=== PATIENT | female | born 1955 | race Caucasian/White ===

== ENCOUNTER 2025-02-11 19:22 | Emergency (ER) | payer MEDICARE, MEDICAID, SELFPAY ==
[2025-02-11 19:24] VITALS: BMI 33.6
[2025-02-11 19:44] VITALS: BP 151/88; PULSE 74; RESP 20; TEMP 36.5; O2SAT 95
--- NOTE | 2025-02-11 19:54 | XR_ITS ---
Examination: Hand, left 2 views Technique: AP lateral left hand 2 views Date and time: February 11, 20251999 hrs. Indications: Injury to the hand today, hand pain. Findings: No acute fracture No dislocation No foreign body Impression: No acute fracture
--- NOTE | 2025-02-11 21:03 | PD.EDWOUND ---
ED Wound/Laceration-RME/HPI General Chief Complaint: Hand/Wrist Problems Stated Complaint: SMASHED LEFT 3RD DIGIT FINGER, LAC Time Seen by Provider: 02/11/25 19:26 Arrival date/time: 02/11/25 19:22 This is a case of 69-year-old female with no medical history came into the emergency room due to laceration on the fourth finger left hand history of present illness started 1 hour prior to arrival in the emergency room when the patient was helping her friend to lift heavy object and accidentally fell on his left hand sustaining a laceration 3 cm on the fourth finger left hand no other injury noted patient tetanus shot is not up-to-date Limitations: no limitations Related Data Home Medications ?Medication ?Instructions ?Recorded ?Confirmed gabapentin 300 mg capsule 300 mg PO BID ##0 07/29/09 12/17/22 albuterol sulfate 90 mcg/actuation 2 puff inhalation Q6HR PRN 07/15/16 12/17/22 aerosol inhaler (Proventil HFA) WHEEZING #0 inhalations escitalopram oxalate 10 mg tablet 10 mg PO QDAY 09/17/22 12/17/22 fluticasone propionate 110 1 puff inhalation DAILY PRN 09/17/22 12/17/22 mcg/actuation HFA aerosol inhaler Shortness Of Breath Or Wheezing (Flovent HFA) fluticasone propionate 50 2 spray intranasal QDAY PRN 09/17/22 12/17/22 mcg/actuation nasal Allergic Symptoms spray,suspension omeprazole 40 mg capsule,delayed 40 mg PO BID 09/17/22 12/17/22 release pravastatin 10 mg tablet 10 mg PO QDAY 09/17/22 12/17/22 atenolol 25 mg tablet 25 mg PO BID 12/17/22 12/18/22 Previous Rx's ?Medication ?Instructions ?Recorded hydrocodone 5 mg-acetaminophen 325 1 tab PO BID PRN pain #10 tabs 15/24 mg tablet cephalexin 500 mg capsule 500 mg PO Q12H #20 caps 02/11/25 mupirocin 2 % topical ointment 1 applic topical BID #1 tube 02/11/25 Allergies Allergy/AdvReac Type Severity Reaction Status Date / Time No Known Allergies Allergy Verified 02/11/25 19:23 Review of Systems Review of Systems Systems Reviewed: All systems reviewed, normal except as documented Constitutional Constitutional: Reports system reviewed and no additional complaints, except as documented and Reports as per HPI Cardiovascular Cardiovascular: Reports system reviewed and no additional complaints, except as documented and Reports as per HPI Respiratory Respiratory: Reports system reviewed and no additional complaints, except as documented and Reports as per HPI Gastrointestinal Gastrointestinal: Reports system reviewed and no additional complaints, except as documented and Reports as per HPI Genitourinary Genitourinary: Reports system reviewed and no additional complaints, except as documented and Reports as per HPI Musculoskeletal Musculoskeletal: Reports system reviewed and no additional complaints, except as documented and Reports as per HPI Past Medical History Past Medical History NEUROLOGIC: Negative Neurological Disorders or Seizures CARDIAC: Positive Hypercholesterolemia, Aneurysm (AAA) and Hypertension; Negative Cardiac Disorders or Congestive Heart Failure RESPIRATORY: Positive Chronic Obstructive Pulmonary Disease (COPD), Asthma, Bronchitis, Pneumonia (many years ago) and Sleep Apnea (does not have cpap) GASTROINTESTINAL: Positive Gastrointestinal Disorders, Gall Bladder Disease (OPEN), Ann's Esophagus, Hemorrhoids, Gastroesophageal Reflux Disease and Obesity GENITOURINARY: Positive Genitourinary Disorders, Renal Disease and Kidney Stones REPRODUCTIVE: Positive Previous Pregnancies (X2) MUSCULOSKELETAL: Positive Musculoskeletal Disorders, Arthritis and Fractures (left 5th toe) ENT: Positive Cataracts (abby) ENDOCRINE: Positive Endocrine Disorders and Diabetes Mellitus Type 2 (Diet controlled); Negative Diabetes Mellitus Type 1 HEMATOLOGIC: Negative Blood Disorders PSYCHO/SOCIAL: Positive Depression and Anxiety OTHER HISTORY: Positive Hospitalization, Chicken Pox, Measles and Mumps; Negative Autoimmune Disease, Falls, Blood Transfusions, Anesthesia Reactions or Cancer Family History FAMILY HISTORY: Positive Family Respiratory Disorders (MOTHER,FATHER lung CA), Family Cardiac Disorders (Father-[place]), Family Cancer (MOTHER,FATHER (LUNGS)) and Family Surgery (SISTER); Negative Family Psychiatric Problems, Family Gastrointestinal Problems or Family Anesthesia Reaction Surgical History SURGICAL: Positive Abdominal Surgery, Tubal Ligation and Section (X2); Negative Cardiac Surgery or Joint Replacement Social History SMOKING STATUS: Never smoker ED Exam General Limitations: Present no limitations General appearance: Present alert, in no apparent distress and other (Patient is awake alert oriented not in distress nontoxic looking well-hydrated well-nourished) Head Head exam: Present atraumatic, normocephalic and normal inspection Eye Eye exam: Present normal appearance, PERRL and EOMI ENT ENT exam: Present normal exam, normal oropharynx and mucous membranes moist Neck Neck exam: Present normal inspection, full ROM and trachea midline Chest Chest inspection: Present normal inspection and symmetric chest wall rise Respiratory Respiratory exam: Present normal lung sounds bilaterally; Absent respiratory distress, wheezes, stridor, accessory muscle use or prolonged expiratory phase Cardiovascular Cardiovascular exam: Present regular rate, normal rhythm and normal heart sounds; Absent bradycardia, tachycardia, irregular rhythm, systolic murmur or diastolic murmur Abdominal Exam Abdominal exam: Present soft and normal bowel sounds Extremities Exam Extremities exam: Present normal inspection and full ROM Expanded Upper Extremity Exam Hand exam: Present normal inspection, full ROM and other (No snuffbox tenderness patient sustained a 3 cm linear laceration on the fourth finger left hand no foreign body no tendon or bone injury no cellulitis no abscess ROM is intact pulses are full and intact capillary refill less than 2 seconds sensory is intact nail is intact); Absent tenderness, swelling, abrasion, laceration, skin avulsion, ecchymosis, deformity, crepitus, dislocation, erythema, amputation, nail avulsion or subungual hematoma Back Exam Back exam: Present normal inspection and full ROM Neurological Exam Neurological exam: Present alert, oriented X3, CN II-XII intact, normal gait and reflexes normal; Absent motor sensory deficit Psychiatric Psychiatric exam: Present normal affect and normal mood Skin Skin exam: Present warm, dry, intact, normal color and other (No abscess no cellulitis) Course Quality Measures none Orders Category Date Time Status XR hand LT 2V Stat Exams 02/11/25 19:54 Taken TET,DIP/PERT AC (Adult)-Tdap [Boostrix Adult (Tdap) Med 02/11/25 19:54 Discontinued Vacc] 0.5 ml IMI .ONCE ONE Vital Signs Vital signs: Vital Signs Temperature 97.7 F 02/11/25 19:44 Pulse Rate 74 02/11/25 19:44 Respiratory Rate 20 02/11/25 19:44 Blood Pressure 151/88 H 02/11/25 19:44 Pulse Oximetry (%) 95 02/11/25 19:44 Oxygen Delivery Method Room Air 02/11/25 19:44 Oxygen saturation 98% in room air PROCEDURES: Laceration Laceration 1: Site: other (Fourth finger left hand) Side (If applicable): left Size (cm): 3 Description: linear Depth: simple, single layer Local Anesthetic: lidocaine 1% Amount of anesthesia used (mL): 4 Pre-repair: wound explored, irrigated extensively and deep structures intact Skin layer closed with: nylon Suture size (cm): 4-0 Number of sutures: 3 Technique: simple, interrupted Wound / Laceration MDM Narrative [facility] Narrative:: This is a case of 69-year-old female with no medical history came into the emergency room due to laceration on the fourth finger left hand history of present illness started 1 hour prior to arrival in the emergency room when the patient was helping her friend to lift heavy object and accidentally fell on his left hand sustaining a laceration 3 cm on the fourth finger left hand no other injury noted patient tetanus shot is not up-to-date physical examination patient is awake alert oriented not in distress nontoxic looking well-hydrated well-nourished nourished noted a 3 cm laceration linear on the fourth finger left hand no foreign body no tendon no bone injury no redness no cellulitis no abscess ROM is intact nail is intact pulses were full and equal capillary refill less than 2 seconds sensory intact the rest of the physical examination neurological exam is normal and unremarkable x-ray showed no fracture no dislocation noted by me laceration repair was performed patient tolerated well the procedure no complication noted bleeding controlled procedure done by [place] protocol and via sterile technique patient will follow-up with primary care physician in 2 days for reevaluation and 10 days for removal of suture for any signs and symptoms of infection patient will return to the emergency room immediately or call 911 patient was discharged with cephalexin and mupirocin to prevent infection and she will take Tylenol for pain Patient was discharged with comfortable condition walking with stable gait. Patient verbalized no further complains explained diagnosis and answered patient question. Patient is comfortable with the proposed management plan including the need to follow up with his/her primary care physician and any specialist if applicable Discussed patient for any urgent condition or worsening sx, He/She needed to go to emergency room immediately or call 911. Patient acknowledge the responsibility to follow up as instructed and to monitor her/his symptoms. For any persistence of the symptoms for more than 3-5 days return precaution advised. Discussed the result of the test and was given printed discharge instruction Patient data External records reviewed:: [facility] previous records Clinical information provided by:: patient Social determinants that could affect healthcare access:: none Patient has the following chronic illnesses:: None How is presenting disease/condition affected by chronic disease/condition?: no chronic disease Evaluation data The following diagnostics were reviewed and interpreted by me:: radiology exam(s) and other (specify) Lab and/or radiology exams considered but not ordered:: Reviewed Interpretation Summary: Reviewed Medications / Prescriptions Medications or Prescriptions considered but not ordered:: Given Medication administrations:: Medication Administration History Discontinued Medications Diphtheria/Tetanus/Acell Pertussis (Diphth,Pertuss(Acell),Tet Vac 0.5 Ml Syr- Adult) 0.5 ml IMi .ONCE ONE Stop: 02/11/25 19:55 Last Admin: 02/11/25 20:02 Dose: Not Given Documented By: SERENA Non-Admin Reason: Not Given Comments: pt states she had tet 3 yrs Given Consultations Consultation(s) initiated? (list below): No Diagnosis Wound Differential Diagnosis: laceration Most likely diagnosis given after review of the tests above:: Finger laceration Admission Indicated Admission indicated?: not indicated Explain why admission is indicated or not indicated:: Not indicated Admission Request Was there a request for admission?: No Admission Attestation Admission request attestation: Not indicated Disposition Plan Disposition Plan: Discharge Discharge Attestation Discharge Attestation: The patient and all family members were given an opportunity to ask questions and understood the discharge instructions. Discharge instructions specifically effects, indications for sooner follow up or return to the emergency department, and the expected course of current diagnosis. Patient condition: Stable Discharge Plan Plan Patient Disposition: HOME (Self Care) Patient condition on transfer: Stable Prescriptions/Referrals Prescriptions/Med Rec: New cephalexin 500 mg capsule 500 mg PO Q12H Qty: 20 0RF mupirocin 2 % ointment 1 applic topical BID Qty: 1 0RF No Action gabapentin 300 MG capsule 300 mg PO BID Qty: 0 albuterol sulfate [Proventil HFA] 6.7 GM HFA aerosol inhaler 2 puff Inhalation Q6HR PRN (Reason: WHEEZING) Qty: 0 omeprazole 40 mg Capsule,Delayed Release(Dr/Ec) 40 mg PO BID pravastatin 10 mg Tablet 10 mg PO QDAY fluticasone propionate 50 mcg/actuation [place],Suspension 2 spray INTRANASAL QDAY PRN (Reason: Allergic Symptoms) Rx Instructions: administer into each nostril fluticasone propionate [Flovent HFA] 110 mcg/actuation Hfa Aerosol Inhaler 1 puff INHALATION DAILY PRN (Reason: Shortness Of Breath Or Wheezing) escitalopram oxalate 10 mg Tablet 10 mg PO QDAY atenolol 25 mg Tablet 25 mg PO BID hydrocodone-acetaminophen 5-325 mg tablet 1 tab PO BID MDD 10 PRN (Reason: pain) Qty: 10 0RF Referrals: Temo Jerez MD [Primary Care Provider, Family Practice] - In 1 week Problem List Clinical Impression: Finger laceration Patient/Caregiver Discharge Instructions Education Materials: Suture Care, ED Laceration: All Closures Additional Instructions: Follow-up with your primary care physician in 2 days for reevaluation and wound check worsening symptoms or any emergent concerns such as redness swelling discharge from the wound pain fever chills return to the emergency immediately or call 911 follow-up with your primary care physician in 2 days for wound check and 10 days for removal of suture keep the wound clean and dry take your medication as directed finish the course of antibiotics Print Language: Lithuanian Stand Alone Forms: Ruth Award Info., Patient Portal Info Letter PA/DANIEL Supervising Physician PA/DANIEL Supervising Physician: Dr. Cortes
[2025-02-11 21:06] VITALS: BP 140/88; PULSE 88; RESP 18; TEMP 36.7; O2SAT 98
== END 2025-02-11 21:08 | disposition home or self-care (01) ==
PROVIDERS: Emergency Provider Emergency Medicine; PCP Family Medicine
DX: S61.213A Laceration without foreign body of left middle finger without damage to nail, initial encounter (principal); X58.XXXA Exposure to other specified factors, initial encounter; Y93.9 Activity, unspecified; Y92.9 Unspecified place or not applicable
CPT/HCPCS: 12002; 73120; 99283

== ENCOUNTER 2025-05-08 17:15 | Emergency (ER) | payer MEDICARE, MEDICAID, SELFPAY ==
[2025-05-08] VITALS (24 sets, daily range): BP systolic 122–203; BP diastolic 45–138; PULSE 54–79; RESP 13–20; TEMP 36.6–37.2; O2SAT 89–100; BMI 34.2
--- NOTE | 2025-05-08 17:22 | XR_ITS ---
Examination: Foot, left, 3 views Technique: AP, oblique, lateral views foot, 3 views Date and time of exam: May 08, 2025, 1741 hours INDICATIONS: Injury to the foot today, foot pain. FINDINGS: Nonstandard views Prominent osteopenia Chronic periosteal new bone along the fourth metatarsal Please see the ankle report for ankle dislocation and trimalleolar fractures IMPRESSION: No acute foot fracture Please see the ankle report for description of ankle dislocation and trimalleolar fractures
--- NOTE | 2025-05-08 17:22 | XR_ITS ---
EXAMINATION: Ankle, left 3 views. Technique: Ankle AP, oblique, lateral 3 views Date and time of exam: May 08, 2025, 1741 hours INDICATIONS: Patient stepped into a hole today with injury of the ankle, ankle pain and deformity FINDINGS: Ankle dislocation, distal articulating surface of the tibia displaced anteriorly and medially relative to the dome of the talus Acute displaced 15 mm medial malleolar bone fragment Acute comminuted displaced fracture distal fibular shaft, 1 shaft width offset Suspicious for 22 mm posterior malleolar fracture IMPRESSION: Ankle dislocation with trimalleolar fractures
--- NOTE | 2025-05-08 17:24 | PD.EDADULT ---
ED General RME/HPI General Chief complaint: Fall Stated complaint: GROUND LEVEL FALL/LEFT ANKLE PAIN Time Seen by Provider: 05/08/25 17:22 Arrival date/time: 05/08/25 17:15 CC: Left ankle pain HPI onset 30 minutes ago. Patient while walking across the road and stepped into a hole falling with immediate pain in her left ankle. Denies ALOC LOC or upper body neck chest or head pain. Denies any blood thinners. EMS reports stable vital signs and route. No pain medicine given. While ankle is immobilized pain is a 1 on a 10 scale when try to move it becomes a 7-8 on a 10 scale. Related Data Home Medications ?Medication ?Instructions ?Recorded ?Confirmed gabapentin 300 mg capsule 300 mg PO BID ##0 07/29/09 12/17/22 albuterol sulfate 90 mcg/actuation 2 puff inhalation Q6HR PRN 07/15/16 12/17/22 aerosol inhaler (Proventil HFA) WHEEZING #0 inhalations escitalopram oxalate 10 mg tablet 10 mg PO QDAY 09/17/22 12/17/22 fluticasone propionate 110 1 puff inhalation DAILY PRN 09/17/22 12/17/22 mcg/actuation HFA aerosol inhaler Shortness Of Breath Or Wheezing (Flovent HFA) fluticasone propionate 50 2 spray intranasal QDAY PRN 09/17/22 12/17/22 mcg/actuation nasal Allergic Symptoms spray,suspension omeprazole 40 mg capsule,delayed 40 mg PO BID 09/17/22 12/17/22 release pravastatin 10 mg tablet 10 mg PO QDAY 09/17/22 12/17/22 atenolol 25 mg tablet 25 mg PO BID 12/17/22 12/18/22 Previous Rx's ?Medication ?Instructions ?Recorded hydrocodone 5 mg-acetaminophen 325 1 tab PO BID PRN pain #10 tabs 06/21/23 mg tablet cephalexin 500 mg capsule 500 mg PO Q12H #20 caps 02/11/25 mupirocin 2 % topical ointment 1 applic topical BID #1 tube 02/11/25 meloxicam 7.5 mg tablet 7.5 mg PO QDAY #20 tabs 05/08/25 Allergies Allergy/AdvReac Type Severity Reaction Status Date / Time No Known Allergies Allergy Verified 02/11/25 19:23 Review of Systems Review of Systems Narrative Review of Systems: GEN: No fever, no chills, no weight loss EYES: No discharge, no visual changes, no pain HEENT: No ear pain, no congestion, no sore throat PULM: No shortness of breath, no cough, no congestion CV: No chest pain, no dyspnea on exertion, no palpitations GI: No nausea, no vomiting, no diarrhea, no pain, no constipation : No frequency, no urgency, no dysuria MUSC/SKEL: + joint pain, no back pain SKIN: No rash PSYCH: No hallucinations, no depression HEME/LYMPH: No easy bleeding or bruising tendencies NEURO: No weakness, no headache Past Medical History Past Medical History NEUROLOGIC: Negative Neurological Disorders or Seizures CARDIAC: Positive Hypercholesterolemia, Aneurysm (AAA) and Hypertension; Negative Cardiac Disorders or Congestive Heart Failure RESPIRATORY: Positive Chronic Obstructive Pulmonary Disease (COPD), Asthma, Bronchitis, Pneumonia (many years ago) and Sleep Apnea (does not have cpap) GASTROINTESTINAL: Positive Gastrointestinal Disorders, Gall Bladder Disease (OPEN), Ann's Esophagus, Hemorrhoids, Gastroesophageal Reflux Disease and Obesity GENITOURINARY: Positive Genitourinary Disorders, Renal Disease and Kidney Stones REPRODUCTIVE: Positive Previous Pregnancies (X2) MUSCULOSKELETAL: Positive Musculoskeletal Disorders, Arthritis and Fractures (left 5th toe) ENT: Positive Cataracts (abby) ENDOCRINE: Positive Endocrine Disorders and Diabetes Mellitus Type 2 (Diet controlled); Negative Diabetes Mellitus Type 1 HEMATOLOGIC: Negative Blood Disorders PSYCHO/SOCIAL: Positive Depression and Anxiety OTHER HISTORY: Positive Hospitalization, Chicken Pox, Measles and Mumps; Negative Autoimmune Disease, Falls, Blood Transfusions, Anesthesia Reactions or Cancer Family History FAMILY HISTORY: Positive Family Respiratory Disorders (MOTHER,FATHER lung CA), Family Cardiac Disorders (Father-MS), Family Cancer (MOTHER,FATHER (LUNGS)) and Family Surgery (SISTER); Negative Family Psychiatric Problems, Family Gastrointestinal Problems or Family Anesthesia Reaction Surgical History SURGICAL: Positive Abdominal Surgery, Tubal Ligation and Section (X2); Negative Cardiac Surgery or Joint Replacement Social History SMOKING STATUS: Never smoker ED Exam Narrative Physical exam: [General: Obese in mild discomfort but not in any acute distress Head normocephalic, no step-offs hematoma induration alteration or depression. HEENT: Eyes pupils are PERRLA EOMs are intact no facial asymmetry bogginess tenderness or abrasions. Mouth pink moist membranes uvula is midline swallow symmetrical phonation is normal. All other subsystems of HEENT are within acceptable limits Neck is supple nontender, full range of motion flexion extension rotation no tenderness with palpation to the cervical spinous processes cleared via Nexus criteria. Chest equal chest rise nontender to palpation Respiratory: Clear to auscultation no wheezes crackles or rubs CV: Rate rhythm is regular no murmurs rubs or clicks Abdomen is distended secondary to body habitus soft nontender no masses positive bowel sounds all 4 quadrants Back: No CVA tenderness no spinous process tenderness from cervical spine thoracic and lumbar spine Skin: Intact no petechiae rash induration ulceration or crepitus Extremities: Left ankle: Obvious in medial malleolus hematoma with exquisite tenderness with palpation no lateral malleolus tenderness. No tenderness with palpation of the calcaneus, or Achilles. Mild tenderness with distal metatarsal squeeze. Moving all other extremities against resistance cap refill less than 2 seconds neurosensory intact Neuro: Awake alert oriented x3 Glascow coma 15 no focal deficits] Course Course Course Narrative: See procedure note and addendum. Patient's case and condition discussed with Dr. Hilton who states patient be discharged out and call his office for outpatient follow-up Quality Measures none Orders Category Date Time Status Conscious Sedation [RT Stand By for Procedure] NOW Care 05/08/25 17:57 Completed Saline [Insert IV] NOW Care 05/08/25 17:57 Completed Splint / Immobilizer STAT Care 05/08/25 17:57 Completed XR ankle LT 2V Stat Exams 05/08/25 19:53 Completed XR ankle comp LT min 3V Stat Exams 05/08/25 17:22 Completed XR foot comp LT min 3V Stat Exams 05/08/25 17:22 Completed Ketamine Inj Med 05/08/25 17:57 Discontinued 50 mg IVP X1 ONE Morphine* Inj Med 05/08/25 18:13 Discontinued 4 mg IVP X1 ONE Ondansetron Inj [Zofran Inj] Med 05/08/25 18:13 Discontinued 4 mg IVP X1 ONE Propofol Inj [Diprivan Inj] Med 05/08/25 17:57 Discontinued 50 mg IV X1 ONE Sodium Chloride 0.9% 500 ml [Ns] 500 ml Med 05/08/25 17:59 Discontinued IV 999 mls/hr oxyCODONE/APAP 5/325 [Percocet 5/325] Med 05/08/25 20:23 Discontinued 1 tab PO X1 ONE Vital Signs Vital signs: Vital Signs Temperature 97.9 F 05/08/25 17:36 Pulse Rate 57 L 05/08/25 17:36 Respiratory Rate 18 05/08/25 17:36 Blood Pressure 160/70 H 05/08/25 17:36 Pulse Oximetry (%) 96 05/08/25 17:36 Oxygen Delivery Method Room Air 05/08/25 17:36 Discharge Plan Plan Patient Disposition: HOME (Self Care) Patient condition on transfer: Stable Prescriptions/Referrals Prescriptions/Med Rec: New meloxicam 7.5 mg tablet 7.5 mg PO QDAY Qty: 20 0RF No Action gabapentin 300 MG capsule 300 mg PO BID Qty: 0 albuterol sulfate [Proventil HFA] 6.7 GM HFA aerosol inhaler 2 puff Inhalation Q6HR PRN (Reason: WHEEZING) Qty: 0 omeprazole 40 mg Capsule,Delayed Release(Dr/Ec) 40 mg PO BID pravastatin 10 mg Tablet 10 mg PO QDAY fluticasone propionate 50 mcg/actuation [place],Suspension 2 spray INTRANASAL QDAY PRN (Reason: Allergic Symptoms) Rx Instructions: administer into each nostril fluticasone propionate [Flovent HFA] 110 mcg/actuation Hfa Aerosol Inhaler 1 puff INHALATION DAILY PRN (Reason: Shortness Of Breath Or Wheezing) escitalopram oxalate 10 mg Tablet 10 mg PO QDAY atenolol 25 mg Tablet 25 mg PO BID hydrocodone-acetaminophen 5-325 mg tablet 1 tab PO BID MDD 10 PRN (Reason: pain) Qty: 10 0RF cephalexin 500 mg capsule 500 mg PO Q12H Qty: 20 0RF mupirocin 2 % ointment 1 applic topical BID Qty: 1 0RF Referrals: Temo Jerez MD [Primary Care Provider, Family Practice] - In 1 week Osei Yanes MD [Physician, Orthopedics] - In 1 week Problem List Clinical Impression: Closed trimalleolar fracture of ankle Patient/Caregiver Discharge Instructions Education Materials: Procedural Sedation, ED Ankle Fracture Additional Instructions: 1. No weightbearing on this ankle 2. Do not take the splint off, do not get the splint wet. If you have excruciating pain in your toes gently loosen the Javid wraps but did not remove the splints. If the splint is removed or gets wet return to the emergency room for resplinting. 3: Use the NSAIDs for temporary pain management. If necessary alternate between NSAIDs (ibuprofen) and Tylenol every 4 hours.. Keep the leg elevated with ice on it 20 minutes out of every hour for the next 2 days while awake. 4. Use a bedside commode, use a walker with a seat. 5. Call the orthopod listed above for outpatient follow-up in 7 to 10 days. 6. If there is a worsening of pain in spite of the medications and you are unable to get a hold of your doctor or the orthopod return to the emergency room for reevaluation. Print Language: Georgian Stand Alone Forms: [employer] Award Info., Work/School Release, Patient Portal Info Letter BERT/DANIEL Supervising Physician HAJA Supervising Physician: Valentin MARY MDM Clinical Information Provided by: patient and EMS Medical Records reviewed [facility] and EMS Chronic Illness/Social Conditions Explain: Anxiety hypertension hyperlipidemia EKG EKG not done Imaging Imaging interpretation: interpreted by me Imaging Interpretation(s): Ankle x-ray shows a trimalleolar fracture with dislocation. Foot x-ray is negative. Postreduction films shows good alignment of the trimalleolar fracture with relocation. Medication Administration(s) Medication Administration History Discontinued Medications Sodium Chloride (Ns) 500 mls @ 999 mls/hr IV .Q31M ONE Stop: 05/08/25 18:29 Last Infusion: 05/08/25 19:44 Dose: Infused Documented By: Admin: 05/08/25 18:53 Dose: 999 mls/hr Documented By: TALON Ketamine HCl (Ketamine 50 Mg/Ml Vial 10 Ml) 50 mg IVP X1 ONE Stop: 05/08/25 17:58 Last Admin: 05/08/25 19:50 Dose: 50 mg Documented By: JACKELYN Comments: admin by Morphine Sulfate (Morphine Sulf Inj 4 Mg/Ml Vial) 4 mg IVP X1 ONE Stop: 05/08/25 18:14 Last Admin: 05/08/25 18:52 Dose: 4 mg Documented By: TALON Ondansetron HCl (Ondansetron Inj 2 Mg/Ml Inj 2 Ml) 4 mg IVP X1 ONE; Protocol Stop: 05/08/25 18:14 Last Admin: 05/08/25 18:52 Dose: 4 mg Documented By: TALON Oxycodone/Acetaminophen (Oxycodone/Apap 5/325 Tablet) 1 tab PO X1 ONE Stop: 05/08/25 20:24 Last Admin: 05/08/25 20:29 Dose: 1 tab Documented By: JACKELYN Propofol (Propofol Inj 10 Mg/Ml Vial 20 Ml) 50 mg IV X1 ONE Stop: 05/08/25 17:58 Last Admin: 05/08/25 20:11 Dose: Not Given Documented By: JACKELYN Non-Admin Reason: Change of Condition Diagnosis Differential Diagnosis ED Complaint MDM: Ankle sprain bimalleolar fracture trimalleolar fracture.
--- NOTE | 2025-05-08 17:38 | PC.NURSE ---
PT BROUGHT IN BY AMBULANCE DUE TO GROUND LEVEL FALL WITH + LEFT ANKLE DEFORMITY. NEG LOC OR HEAD INJURY. PT FELL ON DIRT IN HER DRIVEWAY ON LEFT SIDE. NO OTHER INJURY. PT HAS 10/10 ON CRAWFORD PAIN SCALE. + PULSE AND SENSATION.
[2025-05-08] MEDS: MORPHINE SULF INJ 4 MG/ML VIAL IVP (18:52)
[2025-05-08] MEDS: ONDANSETRON INJ 2 MG/ML INJ 2 ML 4 MG IVP (18:52)
[2025-05-08] MEDS: SODIUM CHLORIDE 0.9% 500 ML 500 ML 999 ML IV (18:53)
[2025-05-08] MEDS: KETAMINE 50 MG/ML VIAL 10 ML IVP (19:50)
--- NOTE | 2025-05-08 19:53 | XR_ITS ---
EXAMINATION: Left ankle 3 views TECHNIQUE: AP lateral left ankle 2 views Date and time: May 08, 2025, 1955 hours, comparison May 08, 2025 1746 hours INDICATIONS: Acute ankle dislocation and trimalleolar fractures today, post reduction. FINDINGS: Reduction of ankle dislocation Significant improvement in fractures distal fibular shaft Less displacement of the medial malleolar fracture Posterior malleolar fracture fragment shows satisfactory position IMPRESSION: Reduction ankle dislocation with marked improvement in alignment of trimalleolar fractures
--- NOTE | 2025-05-08 20:06 | PD.EDLOWEX ---
Lower Extremity Injury RME/HPI General Chief Complaint: Fall Stated Complaint: GROUND LEVEL FALL/LEFT ANKLE PAIN Time Seen by Provider: 05/08/25 17:22 Arrival date/time: 05/08/25 17:15 Related Data Home Medications ?Medication ?Instructions ?Recorded ?Confirmed gabapentin 300 mg capsule 300 mg PO BID ##0 07/29/09 12/17/22 albuterol sulfate 90 mcg/actuation 2 puff inhalation Q6HR PRN 07/15/16 12/17/22 aerosol inhaler (Proventil HFA) WHEEZING #0 inhalations escitalopram oxalate 10 mg tablet 10 mg PO QDAY 09/17/22 12/17/22 fluticasone propionate 110 1 puff inhalation DAILY PRN 09/17/22 12/17/22 mcg/actuation HFA aerosol inhaler Shortness Of Breath Or Wheezing (Flovent HFA) fluticasone propionate 50 2 spray intranasal QDAY PRN 09/17/22 12/17/22 mcg/actuation nasal Allergic Symptoms spray,suspension omeprazole 40 mg capsule,delayed 40 mg PO BID 09/17/22 12/17/22 release pravastatin 10 mg tablet 10 mg PO QDAY 09/17/22 12/17/22 atenolol 25 mg tablet 25 mg PO BID 12/17/22 12/18/22 Previous Rx's ?Medication ?Instructions ?Recorded hydrocodone 5 mg-acetaminophen 325 1 tab PO BID PRN pain #10 tabs 06/21/23 mg tablet cephalexin 500 mg capsule 500 mg PO Q12H #20 caps 02/11/25 mupirocin 2 % topical ointment 1 applic topical BID #1 tube 02/11/25 Allergies Allergy/AdvReac Type Severity Reaction Status Date / Time No Known Allergies Allergy Verified 02/11/25 19:23 Course Orders Category Date Time Status Conscious Sedation [RT Stand By for Procedure] NOW Care 05/08/25 17:57 Active Saline [Insert IV] NOW Care 05/08/25 17:57 Active Splint / Immobilizer STAT Care 05/08/25 17:57 Active XR ankle LT 2V Stat Exams 05/08/25 19:53 Ordered XR ankle comp LT min 3V Stat Exams 05/08/25 17:22 Completed XR foot comp LT min 3V Stat Exams 05/08/25 17:22 Completed Ketamine Inj Med 05/08/25 17:57 Discontinued 50 mg IVP X1 ONE Morphine* Inj Med 05/08/25 18:13 Discontinued 4 mg IVP X1 ONE Ondansetron Inj [Zofran Inj] Med 05/08/25 18:13 Discontinued 4 mg IVP X1 ONE Propofol Inj [Diprivan Inj] Med 05/08/25 17:57 Discontinued 50 mg IV X1 ONE Sodium Chloride 0.9% 500 ml [Ns] 500 ml Med 05/08/25 17:59 Discontinued IV 999 mls/hr Vital Signs Vital signs: Vital Signs Temperature 97.9 F 05/08/25 17:36 Pulse Rate 57 L 05/08/25 17:36 Respiratory Rate 18 05/08/25 17:36 Blood Pressure 160/70 H 05/08/25 17:36 Pulse Oximetry (%) 96 05/08/25 17:36 Oxygen Delivery Method Room Air 05/08/25 17:36 Extremity Injury, Lower Medications / Prescriptions Medication administrations:: Medication Administration History Discontinued Medications Sodium Chloride (Ns) 500 mls @ 999 mls/hr IV .Q31M ONE Stop: 05/08/25 18:29 Last Infusion: 05/08/25 19:44 Dose: Infused Documented By: Admin: 05/08/25 18:53 Dose: 999 mls/hr Documented By: TALON Ketamine HCl (Ketamine 50 Mg/Ml Vial 10 Ml) 50 mg IVP X1 ONE Stop: 05/08/25 17:58 Morphine Sulfate (Morphine Sulf Inj 4 Mg/Ml Vial) 4 mg IVP X1 ONE Stop: 05/08/25 18:14 Last Admin: 05/08/25 18:52 Dose: 4 mg Documented By: TALON Ondansetron HCl (Ondansetron Inj 2 Mg/Ml Inj 2 Ml) 4 mg IVP X1 ONE; Protocol Stop: 05/08/25 18:14 Last Admin: 05/08/25 18:52 Dose: 4 mg Documented By: TALON Propofol (Propofol Inj 10 Mg/Ml Vial 20 Ml) 50 mg IV X1 ONE Stop: 05/08/25 17:58 Discharge Plan Prescriptions/Referrals Prescriptions/Med Rec: No Action gabapentin 300 MG capsule 300 mg PO BID Qty: 0 albuterol sulfate [Proventil HFA] 6.7 GM HFA aerosol inhaler 2 puff Inhalation Q6HR PRN (Reason: WHEEZING) Qty: 0 omeprazole 40 mg Capsule,Delayed Release(Dr/Ec) 40 mg PO BID pravastatin 10 mg Tablet 10 mg PO QDAY fluticasone propionate 50 mcg/actuation [place],Suspension 2 spray INTRANASAL QDAY PRN (Reason: Allergic Symptoms) Rx Instructions: administer into each nostril fluticasone propionate [Flovent HFA] 110 mcg/actuation Hfa Aerosol Inhaler 1 puff INHALATION DAILY PRN (Reason: Shortness Of Breath Or Wheezing) escitalopram oxalate 10 mg Tablet 10 mg PO QDAY atenolol 25 mg Tablet 25 mg PO BID hydrocodone-acetaminophen 5-325 mg tablet 1 tab PO BID MDD 10 PRN (Reason: pain) Qty: 10 0RF cephalexin 500 mg capsule 500 mg PO Q12H Qty: 20 0RF mupirocin 2 % ointment 1 applic topical BID Qty: 1 0RF Referrals: Temo Jerez MD [Primary Care Provider, Family Practice] - In 1 week Patient/Caregiver Discharge Instructions Print Language: French
--- NOTE | 2025-05-08 20:13 | PD.EDADDENDU ---
Emergency Room Addendum Addendum Narrative: Pre-procedure: The patient gave verbal consent for this procedure knowing risk benefits alternatives. The patient?s?Left?ankle was addressed. A time out was obtained to assure that the proper patient and proper procedure were in place. Nursing staff alongside RT were bedside to monitor the patient throughout the procedure. Methods: Patient was placed in a supine position with left ankle stabilized. 50mg IV Ketamine was given. Patient was awake but did not report any pain during the procedure. Traction of left calcaneus with flexion of the metatarsals successfully appeared to reduce the joint. Post procedure: Post-reduction films confirmed this and demonstrated an anatomical reduction. Neuro: Excellent neurovascular qualities intact prior to and after reduction. The patient was placed in a splint for immobilization. The patient tolerated this procedure well, and there were no complications. Patient seen and assessed with attending Dr. Avtar Mckeon, DO PGY-2, Internal Medicine
== END 2025-05-08 21:16 | disposition home or self-care (01) ==
PROVIDERS: Emergency Provider Emergency Medicine; PCP Family Medicine
DX: S82.852A Displaced trimalleolar fracture of left lower leg, initial encounter for closed fracture (principal); W17.2XXA Fall into hole, initial encounter; Y93.01 Activity, walking, marching and hiking; Y92.413 State road as the place of occurrence of the external cause
CPT/HCPCS: 27818; 73600; 73610; 73630; 96361; 96374; 96375; 99284; J2270; J2405; J7999; A9270